=== PATIENT | male | born 1965 | race Caucasian/White ===

== ENCOUNTER 2020-09-11 18:15 | Inpatient (IN) | payer SELFPAY ==
[~2020-09-11] VITALS: Ht 190.5 cm; Wt 96.0 kg
[~2020-09-11 18:15] MED LIST: CEPHALEXIN500 M1 PO; NKA; SEPTRA DS 8001 TAB PO
[2020-09-11 19:23] LABS: BASO # 0.2 (0.0-0.2); BASO % 1.1 % (0.0-2.0); EOS % 0.2 % (0-4.0); GRAN # 10.3 (1.4-6.5); GRAN % 76.1 % (42.2-75.2); HEMOGLOBIN 15.6 g/dl (13.5-18.0); LYMPH # 2.6 (1.2-3.4); LYMPH % 19.5 % (20.0-51.0); MEAN CELL VOLUME 92 fl (80.0-100.0); MEAN CORPUSCULAR HEMOGLOBIN 30 pg (27.0-31.0); MEAN CORPUSCULAR HGB CONC 33 g/dl (33.0-37.0); MEAN PLATELET VOLUME 8.6 fl (7.4-10.4); MONO # 0.4 (0.1-0.6); MONO % 2.7 % (1.7-9.3); PLATELET COUNT 370 K/mm3 (130-400); REDCELL DISTRIBUTION WIDTH-CV 13.3 % (11.5-14.5)
[2020-09-11 19:35] LABS: ALBUMIN 4.8 gm/dL (3.5-5.0); BILIRUBIN,TOTAL 0.5 mg/dL (0.0-1.0); CALCIUM 8.9 mg/dL (8.4-10.2); CREATININE, serum 0.88 (0.66-1.25); POTASSIUM 4.3 mmol/L (3.4-5.0); TOTAL PROTEIN 8.9 gm/dL (6.4-8.2)
[2020-09-11 23:52] LABS: COLLECTION METHOD CLEAN CATCH
[2020-09-11 23:58] LABS: MUCOUS Present /lpf; PH 5 (5-8); SQUAMOUS EPITHELIAL None Seen /hpf; URINE APPEARANCE Clear; URINE BACTERIA None Seen /hpf; URINE BILIRUBIN Negative (NEGATIVE); URINE BLOOD Negative (NEGATIVE); URINE COLOR Yellow; URINE GLUCOSE Negative (NEGATIVE); URINE KETONE 2+ (NEGATIVE); URINE LEUKOCYTE ESTERASE Negative (NEGATIVE); URINE NITRATE Negative (NEGATIVE); URINE PROTEIN(semi-quant) Negative (NEGATIVE); URINE RBC 0-2 /hpf; URINE UROBILINOGEN Negative (NEGATIVE)
[2020-09-12] VITALS (362 sets, daily range): BP systolic 106–174; BP diastolic 66–100; PULSE 76–100; TEMP 97.8–98.8; O2SAT 89–100
--- NOTE | 2020-09-12 02:27 | NUR ---
Vancomycin Initial Dosing Pharmacy Note Ordering provider: Emmanuel Seaman MD Indication/duration: Sepsis/ Chest abcess - 7 days Relevant comorbidities: HTN LABS: WBC = 13.5, SCr = 0.88 Recommendation: Will draw troughs and follow levels. Loading dose: 2 grams Maintenance dose: 2 grams every 12 hours Trough goal: 15-20 ug/mL
[2020-09-12 05:37] LABS: BASO # 0.1 (0.0-0.2); EOS % 0.2 % (0-4.0); GRAN # 8.4 (1.4-6.5); GRAN % 71.6 % (42.2-75.2); HEMATOCRIT 39.9 % (42.0-52.0); LYMPH # 2.6 (1.2-3.4); LYMPH % 22.2 % (20.0-51.0); MEAN CELL VOLUME 93 fl (80.0-100.0); MEAN CORPUSCULAR HEMOGLOBIN 30 pg (27.0-31.0); MEAN CORPUSCULAR HGB CONC 32 g/dl (33.0-37.0); MEAN PLATELET VOLUME 8.6 fl (7.4-10.4); MONO # 0.6 (0.1-0.6); MONO % 4.7 % (1.7-9.3); PLATELET COUNT 282 K/mm3 (130-400); RED BLOOD COUNT 4.27 M/mm3 (4.20-5.60); REDCELL DISTRIBUTION WIDTH-CV 13.3 % (11.5-14.5)
[2020-09-12 05:45] LABS: HEMOGLOBIN 12.9 g/dl (13.5-18.0)
[2020-09-12 05:49] LABS: CALCIUM 8.1 mg/dL (8.4-10.2); CREATININE, serum 0.81 (0.66-1.25); POTASSIUM 4.2 mmol/L (3.4-5.0)
--- NOTE | 2020-09-12 09:37 | NUR ---
SW met with patient to conduct intake evaluation. Patient lives at home in [place] with his brother Pawan. Patient did not have a phone number for his brother. Patient lives close to friend and hydroelectric machinery mechanic helper MAGALI ([phone]). Patient is interested in electing MAGALI as his DPOA; however, he is not feeling well today and would like SW to check in with him tomorrow (09/13). Patient is independent with ADLS and currently requires no DME. Patient denies having PCP but was interested in setting up with [facility] in . Please check in with this Sunday. Patient uses [facility] for pharmacy needs. Patient did report concers paying for medications and confirmed his self-pay status. MICKEY informed patient that she would be contacting Nessa Byrd in finance to assist him in charitable applications for his stay as well as applying for Medicaid. Please check in with patient closer to discharge to assess for medication assistance. Patient plans to return home upon discharge. Patient is concerned with his back pain and wants a more comfortable bed. MICKEY will request a PT consult be put in for PT but informed patient that ICU beds are fairly standard. However, SW will informed nursing staff of patient needs/request. Social work will continue to follow.
--- NOTE | 2020-09-12 13:00 | NUR ---
patient transferring to Surgical floor room 346, I have called and given report to hans Tilley, and BETITO Aranda, vital signs stable at time of transport, scoring 2-3 on CIWA, tele in place prior to transfer, IV Zosyn transfusing, I looked up the phone number for his hoahaoism/ spreader whom is his primary resource and support system and the patient was going to call him this afternoon after his hoahaoism services, he is able to transfer to wheelchair with stand by assist, I personally transported him to room 346 and notified receiving staff upon our arrival, patient denied needs, call light in reach
--- NOTE | 2020-09-12 13:00 | NUR ---
PATIENT TRANSFERED FROM ICU TO UNIT. ALERT AND ORIENTED X3. VSS. NO COMPLAINTS OF PAIN AT THIS TIME. PATIENT DOES STATE HE IS SLIGHTLY NAUSEOUS HOWEVER. HEAD TO TOE ASSESSMENT COMPLETED. LUNG SOUNDS CLEAR IN ALL LOBES. HEART SOUNDS NORMAL AND REGULAR. BOWEL SOUNDS ACTIVE IN ALL FOUR QUADRANTS. IT IS NOTED THAT THE ABDOMINAL AORTIC PULSE IS VISUALISED AND EASILY PALPATED UPON ASSESSMENT. RADIAL, POST TIBIAL, AND PEDAL PULSES ARE ALL EQUAL AND READILY PALPABLE. THERE IS NO EDEMA OR PITTING NOTED. THE PATIENT COMPLAINS OF A SORE THROAT THAT MAKES HIM GAG AND COUGH. UPON VISUALIZATION, THERE IS SOME SLIGHT REDNESS NOTED. CERVICAL LYMPHNODES ARE WNL. BED LEFT IN THE LOWEST POSITION AND CALL LIGHT LEFT WITHIN REACH.
[2020-09-12] MEDS ORDERED: ZESTRIL 10MG10 MG PO (16:34)
--- NOTE | 2020-09-12 19:34 | NUR ---
Awake, alert, oriented x 4, able to make all needs known, updated on plan of care, c/o throat rawness- patient teaching continues, dresing to R chest abcess c/d/i, continues on abt w/o issue, alcohol withdrawl teaching continues with patient verbalizing understanding, c/o decreased appetite, will continue to monitor.
[2020-09-13] VITALS (11 sets, daily range): BP systolic 139–180; BP diastolic 73–94; PULSE 65–93; TEMP 97.9–100
--- NOTE | 2020-09-13 04:55 | NUR ---
Awake, alert, oriented x 4, able to make all needs known, detox withdrawl scale continues as charted, no distress noted at this time, tolerating abt w/o issue, ambulates with steady gait to bathroom. Will continue to monitor.
--- NOTE | 2020-09-13 07:43 | NUR ---
Patient resting in bed. He had nausea with breakafast. Denies the need for Zofran. Medicated with 0.5mg ativan per etoh scale. Bp elevated, termors noted. Ivf & antibioitcs to Right hand per orders. Patient reports voiding frequently. Bowels active. Right chest gauze dressing intact, drainage noted. Will monitoor.
[2020-09-13 09:42] LABS: BASO # 0.1 (0.0-0.2); GRAN # 6.2 (1.4-6.5); GRAN % 74.2 % (42.2-75.2); HEMATOCRIT 41.1 % (42.0-52.0); HEMOGLOBIN 13.7 g/dl (13.5-18.0); LYMPH # 1.5 (1.2-3.4); LYMPH % 18.6 % (20.0-51.0); MEAN CELL VOLUME 89 fl (80.0-100.0); MEAN CORPUSCULAR HEMOGLOBIN 30 pg (27.0-31.0); MEAN CORPUSCULAR HGB CONC 33 g/dl (33.0-37.0); MEAN PLATELET VOLUME 8.8 fl (7.4-10.4); MONO # 0.5 (0.1-0.6); PLATELET COUNT 244 K/mm3 (130-400); RED BLOOD COUNT 4.61 M/mm3 (4.20-5.60); REDCELL DISTRIBUTION WIDTH-CV 12.8 % (11.5-14.5)
[2020-09-13 09:49] LABS: CALCIUM 8.7 mg/dL (8.4-10.2); CREATININE, serum 0.72 (0.66-1.25)
--- NOTE | 2020-09-13 10:51 | NUR ---
Patient sitting at edge of bed. Blood pressure still elevated, medication with ativan per scale. Lisinopril & lidoderm per orders. Hospitalsit roualineed. Plan of care reviewed. Patient bummed he has to stay another day.
--- NOTE | 2020-09-13 10:58 | NUR ---
MICKEY attended clinical rounds. Awaiting blood cultures. MICKEY followed up with the patient to discuss primary care. The patient confirms that he does not have a PCP and has not seen one in a long time. MICKEY discussed [facility] in [place]. The patient states that he would be interested in getting set up there. MICKEY contacted [facility] in and secured the patient an appointment with Laya Rivera APRN on 09/21 at 1400. MICKEY informed the patient and provided him with [facility] registration packet. MICKEY faxed the patient's records to [facility]. MICKEY to inform the ammunition storage superintendent of the appointment. MICKEY also discussed a DPOA-HC and next of kin. The patient states that he is not , has no children, and that his parents are . He states that he has three siblings. The patient was interested in obtaining a DPOA-HC, but states that he needs some time to think about who he would want to designate. He plans to talk to his nursing manager about this. MICKEY will need to fax the patient's d/c orders to [facility] [phone]. MICKEY to continue to follow.
--- NOTE | 2020-09-13 12:05 | NUR ---
First visit from the rn gastroenterology. No needs right now.
--- NOTE | 2020-09-13 19:36 | NUR ---
Patient resting in bed. He tolerated dinner, but did have a coughing fit & did dry heave. No emesis. He denies pain this evening, overall reports feeling much better. Int. VOiding adequately. Denies needs at this time, Sanjuanita to resumes cares.
[2020-09-14 04:03] VITALS: BP 165/96; PULSE 70; TEMP 98.6
--- NOTE | 2020-09-14 06:03 | NUR ---
IV site to R wrist- leaking, removed IV w/o issue, this nurse failed x 2 attempts, Charge nurse took 2 attempts and successful at 22 G L FA, patient tolerated well.
[2020-09-14 07:37] LABS: HEMATOCRIT 40.6 % (42.0-52.0); HEMOGLOBIN 13.9 g/dl (13.5-18.0); MEAN CELL VOLUME 89 fl (80.0-100.0); MEAN CORPUSCULAR HEMOGLOBIN 31 pg (27.0-31.0); MEAN CORPUSCULAR HGB CONC 34 g/dl (33.0-37.0); MEAN PLATELET VOLUME 8.9 fl (7.4-10.4); PLATELET COUNT 221 K/mm3 (130-400); RED BLOOD COUNT 4.56 M/mm3 (4.20-5.60); REDCELL DISTRIBUTION WIDTH-CV 12.8 % (11.5-14.5)
[2020-09-14 07:46] LABS: CALCIUM 8.8 mg/dL (8.4-10.2); CREATININE, serum 0.76 (0.66-1.25); POTASSIUM 3.7 mmol/L (3.4-5.0)
--- NOTE | 2020-09-14 08:00 | NUR ---
PATIENT IS A&O. VSS. DENIES C/O PAIN OR NAUSEA. BREAKFAST TRAY AT BEDSIDE. IV TO INT. AM MEDS GIVEN. HEAD TO TOE ASSESSMENT WNL. GAUZE DRESSING TO RIGHT CHEST ABSCESS IS CD&I. PATIENT HOPING TO DISCHARGE HOME LATER TODAY. WAITING FOR HOSPITALIST TO ROUND.
[2020-09-14 08:55] VITALS: BP 148/89; PULSE 110; TEMP 98.4
[2020-09-14] MEDS ORDERED: DOXYCYCLINE 10100 MG PO (08:56)
--- NOTE | 2020-09-14 10:15 | NUR ---
PATIENT HAS DISCHARGE ORDERS AND IS CALLING HIS RIDE. DC'D IV SITE AND COVERED WITH GAUZE & TAPE. APPLIED NEW DRESSING TO RIGHT CHEST ABSCCESS, NOTED NO DRAINAGE. TELE OFF. PATIENT GETTING DRESSED.
--- NOTE | 2020-09-14 11:50 | NUR ---
PATIENT'S RIDE HERE. ESCORTED OUT
--- NOTE | 2020-09-14 11:53 | NUR ---
The patient discharged back home today, 09/14. MICKEY faxed the patient's d/c orders to [facility] in [place]. No additional needs at this time.
== END 2020-09-14 11:50 | disposition home or self-care (01) | DRG 872 ==
LOC: COL.ER 18:15 → ICU 23:05 → EDBEDREQ 23:30 → EDBEDREQSVC 23:30 → EDBEDREQ 23:37 → SURG 09-12 13:58
PROVIDERS: Emergency Medicine; Physician Assistant; Student in an Organized Health Care Education/Training Program; ADMIT Internal Medicine
PROC: 0W980ZZ Drainage of Chest Wall, Open Approach (ICD-10-PCS; principal; 2020-09-11)
DX: A41.9 Sepsis, unspecified organism (principal); L02.213 Cutaneous abscess of chest wall; E87.2 Acidosis; F17.200 Nicotine dependence, unspecified, uncomplicated; I10 Essential (primary) hypertension; F10.229 Alcohol dependence with intoxication, unspecified; Z66 Do not resuscitate; M54.9 Dorsalgia, unspecified; G89.29 Other chronic pain; Z90.49 Acquired absence of other specified parts of digestive tract; Y90.8 Blood alcohol level of 240 mg/100 ml or more
CPT/HCPCS: 99223-AI; 99232-AI; 99233-AI; 99239; J1200; J1650; J2060; J2405; J2543; J2765; J3010; J3370; J7030; J7040; J7120; Q9967

== ENCOUNTER 2020-10-11 11:50 | Emergency (ER) | payer SELFPAY ==
[~2020-10-11] VITALS: Ht 190.5 cm; Wt 90.0 kg
[~2020-10-11 11:50] MED LIST changes: +DOXYCYCLINE 10100 MG PO; +ZESTRIL 10MG10 MG PO
[2020-10-11 12:15] VITALS: TEMP 97.8
[2020-10-11 12:49] LABS: BASO # 0.2 (0.0-0.2); BASO % 2.3 % (0.0-2.0); EOS % 0.1 % (0-4.0); GRAN # 4.3 (1.4-6.5); GRAN % 58.2 % (42.2-75.2); HEMATOCRIT 44.7 % (42.0-52.0); HEMOGLOBIN 14.7 g/dl (13.5-18.0); LYMPH # 2.5 (1.2-3.4); LYMPH % 33.2 % (20.0-51.0); MEAN CELL VOLUME 93 fl (80.0-100.0); MEAN CORPUSCULAR HEMOGLOBIN 31 pg (27.0-31.0); MEAN CORPUSCULAR HGB CONC 33 g/dl (33.0-37.0); MEAN PLATELET VOLUME 8.5 fl (7.4-10.4); MONO # 0.4 (0.1-0.6); MONO % 5.7 % (1.7-9.3); PLATELET COUNT 231 K/mm3 (130-400); RED BLOOD COUNT 4.79 M/mm3 (4.20-5.60)
[2020-10-11 13:04] LABS: ALANINE AMINOTRANSFERASE 75 U/L (4-49); ALBUMIN 4.8 gm/dL (3.5-5.0); ALKALINE PHOSPHATASE 82 U/L (50-136); ANION GAP 16 mmol/L (7-16); AST,SGOT 74 U/L (15-37); BILIRUBIN,TOTAL 0.4 mg/dL (0.0-1.0); BLOOD UREA NITROGEN 14 mg/dL (9-20); CALCIUM 8.8 mg/dL (8.4-10.2); CARBON DIOXIDE 24 mmol/L (22-30); CHLORIDE 104 mmol/L (98-107); CREATININE, serum 0.69 (0.66-1.25); GLUCOSE 109 mg/dL (74-106); POTASSIUM 4.1 mmol/L (3.4-5.0); SODIUM 144 mmol/L (137-145); TOTAL PROTEIN 8.9 gm/dL (6.4-8.2)
[2020-10-11 13:10] LABS: ALCOHOL(ethanol),MEDICAL > 300 mg/dL
[2020-10-11 13:16] LABS: TROPONIN-I < 0.012 ng/mL (0.000-0.035)
[2020-10-11 13:59] VITALS: BP 142/94; PULSE 86
== END 2020-10-11 14:00 | disposition home or self-care (01) ==
LOC: COL.ER 11:50
PROVIDERS: Emergency Medicine
DX: F10.20 Alcohol dependence, uncomplicated (principal); F17.210 Nicotine dependence, cigarettes, uncomplicated; Z90.89 Acquired absence of other organs; Y90.8 Blood alcohol level of 240 mg/100 ml or more
CPT/HCPCS: J2405; J7030